=== PATIENT | male | born 1985 | race Caucasian/White ===

== ENCOUNTER → 2025-09-04 15:13 | Outpatient (REF) | payer OTHER, SELFPAY | LOC: RAD 15:13 | PROVIDERS: ATTENDING PHYSICIAN Physician Assistant Surgical; FAMILY PHYSICIAN Internal Medicine | DX: Z01.818 Encounter for other preprocedural examination (principal); M54.50 Low back pain, unspecified | CPT/HCPCS: 70030 ==